=== PATIENT | female | born 1975 | race Caucasian/White ===

== ENCOUNTER 2024-11-14 01:59 | Emergency (ER) | payer SELFPAY ==
[~2024-11-14] VITALS: Ht 152.4 cm; Wt 64.0 kg
[2024-11-14 02:21] VITALS: O2SAT 99
[2024-11-14 03:22] LABS: CLARITY URINE CLOUDY (CLEAR); COLOR URINE YELLOW (YELLOW); GLUCOSE URINE NEGATIVE (NEGATIVE); KETONES URINE NEGATIVE (NEGATIVE); LEUKOCYTE ESTERASE URINE 3+ (NEGATIVE); NITRITE URINE NEGATIVE (NEGATIVE); OCCULT BLOOD URINE 2+ (NEGATIVE); PH URINE 7.5 (4.5-8.0); PROTEIN URINE 2+ (NEGATIVE); SPECIFIC GRAVITY URINE 1.013 (1.005-1.030); UROBILINOGEN URINE 0.2 E.U./dL (0.2-1.0)
[2024-11-14] MEDS: KETOROLAC 30MG/ML VIAL IM ONE (03:52)
[2024-11-14 04:23] LABS: BASOPHILS % 0.5 % (0.0-2.0); EOSINOPHILS % 6.6 % (0.0-5.0); HCG SCREEN NEGATIVE; HEMATOCRIT. 37.1 % (36.0-48.0); HEMOGLOBIN. 12.3 g/dL (12.0-16.0); LYMPHOCYTES % 17.6 % (20.0-50.0); MEAN CORPUSCULAR HEMOGLOBIN 28.3 pg (28.0-32.0); MEAN CORPUSCULAR HGB CONC 33.1 g/dL (31.0-37.0); MEAN CORPUSCULAR VOLUME 85.7 fL (81.0-99.0); MEAN PLATELET VOLUME 10.9 fl (7.4-10.4); MONOCYTES % 6.2 % (2.0-8.0); NEUTROPHILS % 69.1 % (40.0-76.0); PLATELET 190 x1000/uL (130-400); RED BLOOD CELL COUNT 4.33 mill/uL (4.2-5.4); RED CELL DISTRIBUTION WIDTH 12.5 % (11.6-14.6); WHITE BLOOD COUNT 11.7 x1000/uL (4.5-11.0)
[2024-11-14 04:27] LABS: CHLORIDE 105 mEq/L (98-107); SODIUM 140 mEq/L (136-145)
[2024-11-14 04:28] LABS: CALCIUM 9.4 mg/dL (8.7-10.4); CARBON DIOXIDE 28 mEq/L (21-32)
[2024-11-14 04:33] LABS: CREATININE 0.9 mg/dL (0.6-1.0); GLUCOSE 109 mg/dL (70-105); UREA NITROGEN BLOOD 15 mg/dL (9-23)
[2024-11-14 04:35] LABS: ALANINE AMINOTRANSFERASE 28 IU/L (10-49); ALBUMIN 4.2 g/dL (3.2-4.8); ASPARTATE AMINOTRANSFERASE 34 IU/L (<34); BILIRUBIN TOTAL 0.4 mg/dL (0.1-1.0)
[2024-11-14 04:36] LABS: PROTEIN TOTAL 6.9 g/dL (6.0-8.3)
[2024-11-14 04:38] LABS: BILIRUBIN DIRECT < 0.1 mg/dL (<=3.0)
[2024-11-14 05:04] LABS: RBC URINE 25-50 /hpf (0-2); SQUAMOUS EPITHELIAL CELL URINE NONE SEEN /lpf (RARE/1+); WBC URINE TNTC /hpf (0-2)
[2024-11-14 05:05] LABS: BACTERIA URINE 1+
[2024-11-14] MEDS: SODIUM CHLORIDE 0.9% 1,000 ML IV ONE (05:46)
[2024-11-14] MEDS ORDERED: CEFP200T13 MT (05:47)
[2024-11-14] MEDS: CEFTRIAXONE 1GM/50ML 50 ML IV ONE (05:51)
[2024-11-14 07:12] VITALS: BP 121/71; PULSE 73; RESP 18; TEMP 36.6; O2SAT 99
[2024-11-14 14:01] LABS: UCG SCREEN NEGATIVE
== END 2024-11-14 07:14 | disposition home or self-care (01) ==
LOC: ER 01:59
DX: N39.0 Urinary tract infection, site not specified (principal); Z88.0 Allergy status to penicillin
CPT/HCPCS: 99285; 74176; 96365; 80076; 80048; 81003; 81025; 84703; 83690; 85025; 87086; 87186; 87077; 36415; 96372; J1885; J0696; J7030